=== PATIENT | female | born 1940 | race Caucasian/White ===

== ENCOUNTER → 2016-08-24 | Day surgery (SDC) | payer BC ==
[~2016-08-24] MED LIST: ACETAMINOPHEN/HYDROcodone 325 MG/7.5 MG TAB ONE; BUPIVACAINE/EPINEPHRINE 0.25% 50 ML VIAL ONE; KETOROLAC TROMETHAMINE 30 MG/ML (IVP) VIAL IV PUSH ONE; LACTATED RINGER'S 1000 ML INJ 1,000 ML ONE; MIDAZOLAM HCL 2 MG/2 ML VIAL ONE; MORPHINE SULFATE 4 MG/ML INJ ONE; ONDANSETRON HCL 4 MG/2 ML VIAL IV PUSH ONE; PROPOFOL 200 MG/20 ML AMP IV ONE; ceFAZolin INJ 1,000 MG VIAL ONE
--- NOTE | 2016-08-24 18:28 | TN ---
cc: CLIVE AMOS MD DATE OF SURGERY: 08/24/2016. PREOPERATIVE DIAGNOSIS: Right knee torn medial meniscus, probable loose bodies. POSTOPERATIVE DIAGNOSIS: 1. Torn medial meniscus. 2. Loose bodies 3. Osteoarthritis medial compartment. OPERATIVE PROCEDURE PERFORMED: Right knee arthroscopy with partial medial meniscectomy and removal of loose bodies. SURGEON: Clive Amos MD. DESCRIPTION OF THE PROCEDURE IN DETAIL: Informed consent was obtained. The patient was taken to the operating room and placed in the supine position on the operating table. She was administered a general anesthesia via Dr. Mckeon of the anesthesia department. At that time, the right leg had a tourniquet applied to the thigh. The leg was prepped with Betadine soap followed by Betadine paint and draped in sterile down sheets, sterile split sheet. A stockinette was applied to calf and this was wrapped with Coban. An extremity drape was applied. At that time, a time-out was held and confirmed. The patient was given a gram of Ancef prior to the initiation of the operative procedure. The leg was elevated. The tourniquet was inflated to 300 mmHg. The leg was allowed to flex over the side of the operating table. An 18 gauge spinal needle was placed in the region of the lateral infrapatellar portal. This region was infiltrated with 4 mL of 0.25% Marcaine with epinephrine. Infiltration was also performed in the medial infrapatellar portal and the transpatellar tendon portal region. An incision was made with 11-blade in the region of the transpatellar tendon portal. An inflow cannula was placed. A second incision was placed in the region of the lateral infrapatellar portal and the arthroscopic cannula was placed. At that time, diagnostic arthroscopy commenced and the medial compartment was examined. There were some extensive chondromalacic changes about the medial femoral condyle and to a lesser extent, the iliotibial plateau. The more medial portion had essentially no articular cartilage remaining and was down to subchondral bone. There was some undersurface tearing of the medial meniscus noted at the posterior horn. There was a large loose body identified. This was subsequently removed. This was debrided with the meniscal shaver. The scope was placed in the intercondylar notch. There was another loose body identified. There was a third loose body identified near the base of the anterior cruciate ligament. These loose bodies were all removed. The scope was removed from over the intercondylar notch to the edge of the lateral compartment. The leg was placed in a figure-four position. The lateral meniscus, lateral femoral condyle, popliteus tendon and lateral tibial plateau all appeared satisfactory. There was gentle debridement of the free edge of the lateral meniscus performed. The scope was placed in the posterior medial and posterolateral compartments and these areas appeared normal. The scope was placed in the suprapatellar pouch. This appeared normal. There were no significant chondromalacic changes of the patella noted and there were no pathologic plica seen. At that time, the knee was thoroughly irrigated and suctioned. All cannulas were removed. Each portal was closed with a single 4-0 nylon interrupted stitch. Band-Aids, 4x4s, Sof-Rol and Melo wrap were applied to the patient's knee. The patient tolerated the procedure well and was then taken to the recovery room in stable condition. At the completion of the procedure, the sponge count, instrument count and needle count were correct. The estimated blood was less than 10 cc. The tourniquet was deflated after application of the dressing with total tourniquet time 33 minutes. MD SALOME Zee/DANIELLE /4:21 PM /6:16 PM
== END | disposition home or self-care (01) ==
LOC: ESDC 13:16
PROVIDERS: ATTEND Orthopaedic Surgery
DX: S83.241A Other tear of medial meniscus, current injury, right knee, initial encounter (principal); M17.11 Unilateral primary osteoarthritis, right knee
CPT/HCPCS: 01400; 29881; J0690; J1885; J2250; J2270; J2405; J3010; J7120